=== PATIENT | male | born 2005 | race Caucasian/White ===

== ENCOUNTER 2023-10-08 22:13 | Emergency (ER) | payer BC, SELFPAY ==
[2023-10-08 22:14] VITALS: BP 130/62; PULSE 78; RESP 17; TEMP 36.4; O2SAT 97; BMI 39.6
--- NOTE | 2023-10-08 22:25 | CT_ITS ---
EXAMINATION : Head CT w/out contrast HISTORY : injury COMPARISON : None. TECHNIQUE : Multiple contiguous axial images were obtained from the skull base to the vertex without intravenous contrast. A radiation dose optimization technique was used for this scan. FINDINGS : The ventricles and sulci are normal in size. There is no evidence for acute intracranial hemorrhage, mass effect, or midline shift. There is no extra-axial fluid collection. There is normal jacobs-white differentiation, without CT evidence of acute ischemia or infarct. The skull base and calvarium are unremarkable. The orbits are unremarkable. The paranasal sinuses are clear. The mastoid air cells are well-aerated. Large left parietal scalp hematoma. CT/Brain/Head without Contrast IMPRESSION: Large left parietal scalp hematoma without fracture or intracranial hemorrhage.. Electronically Signed: Rocael Cardenas MD at 0:07 EDT ,
--- NOTE | 2023-10-08 22:25 | CT_ITS ---
INDICATION: injury EXAMINATION: CT CERVICAL SPINE - CT Spine Cervical W/O Contrast Injection TECHNIQUE: Helically acquired images were obtained of the cervical spine. 2D reformatted images were reviewed. A radiation dose optimization technique was used for this scan. IV Contrast dosage and agent: None. COMPARISON: None. FINDINGS: VERTEBRAE: Questionable acute nondisplaced fractures of the bilateral T1 transverse processes. No discrete lytic or blastic abnormality. Normal alignment. Normal craniocervical junction and cervicothoracic junction. DISCS and SPINAL CANAL: Disc heights are preserved. No critical stenosis. NECK SOFT TISSUES: No prevertebral soft tissue swelling. There is bilateral cervical lymphadenopathy. LUNG APICES: Clear. CT/Spine Cervical without Contras IMPRESSION: Questionable acute nondisplaced fractures versus prominent vascular channels of the bilateral T1 transverse processes. Recommend chest or T-spine CT for further evaluation. Bilateral cervical lymphadenopathy. Recommend neck CT with contrast. Electronically Signed: Rocael Cardenas MD at 0:18 EDT ,
--- NOTE | 2023-10-08 22:26 | EX.ED.GENINJ ---
HPI History of Present Illness Chief Complaint: Laceration Informant: patient Onset/Context/Timing Onset: Today Narrative Narrative: Patient presents after tripping and falling while running tonight hitting his head on concrete. He has a 4 cm laceration of the left parietal scalp with a hematoma. There is no loss of consciousness. He has slight neck stiffness. He is unsure of his last tetanus update. PFSH PFS Medical History no medical history no medical history Home Medications NK 10/08/23 [History Last Taken Unknown] Allergy/AdvReac Type Severity Reaction Status Date / Time No Known Allergies Allergy Verified 10/08/23 22:16 ROS ROS ED Constitutional Constitutional ED: Denies chills or fever(s) Eyes Eyes: Denies change in vision or discharge from eye(s) ENT ENT ED: Denies discharge from eye(s), rhinorrhea or sore throat Cardiovascular Cardiovascular: Denies chest pain Respiratory/Chest Respiratory/Chest: Denies cough or dyspnea Gastrointestinal Gastrointestinal: Denies abdominal pain, nausea or vomiting Musculoskeletal Musculoskeletal: Reports neck pain; Denies back pain or extremity pain Integumentary Reports other Details: Scalp laceration ; Denies Abrasions or rash Neurologic Neurologic: Reports headache(s); Denies weakness Psychiatric Psychiatric: Denies anxiety or depression Allergic/Immunologic Allergic/Immunologic ED: Denies lip swelling or urticaria EXAM Physical Exam Const Vital Signs: 10/08/23 22:14 Temperature 97.6 F L Temperature Source Temporal Pulse Rate 78 Respiratory Rate 17 Blood Pressure 130/62 H Blood Pressure Mean 84 Pulse Ox 97 Oxygen Delivery Method Room Air Positive well nourished and well developed General Appearance ED: well developed HEENT HEENT Narrative: 4 cm laceration with underlying hematoma to the left parietal scalp. Bleeding well-controlled. Eyes EOMs intact bilaterally Neck Neck Narrative: No focal C-spine tenderness. Chest Wall inspection of chest normal and palpation of chest normal Resp normal respiratory effort and clear to auscultation bilaterally Cardio regular rhythm Rate: regular rate GI non-tender Palpation: soft Extremity normal to inspection Neuro oriented x3, moves all extremities, no focal motor deficits and no sensory deficits noted Skin Skin Narrative: Scalp laceration as noted above. MDM MDM MDM Narrative Medical decision making narrative: Tetanus update provided. Patient sent for CT imaging of the brain and C-spine to evaluate for bleed, fracture, contusion. Laceration is anesthetized with 1% lidocaine with epinephrine, 8 cc total used. Wound is cleansed and irrigated. 7 mera placed across the wound. Patient tolerated procedure well. CT scan of the head reveals parietal scalp hematoma without fracture. CT of the C-spine reveals questionable acute nondisplaced fractures versus prominent vascular channels of the bilateral T1 transverse processes. This area is reexamined. Patient has no tenderness to this area. He does not wish to stay for further imaging of this area. I did advise him if it starts to bother him he can return and we can repeat imaging at that time. He is reassured that this is not near the spinal cord and would not cause any neurosymptoms even if there were nondisplaced fractures. Patient is to have his mera removed in 5 to 7 days. Return instructions given. Radiography Diagnostic Testing: Clinical Impression(s) from Imaging Studies Brain CT 10/08/23 22:25 IMPRESSION: Large left parietal scalp hematoma without fracture or intracranial hemorrhage.. Electronically Signed: Rocael Cardenas MD at 0:07 EDT , Cervical Spine CT 10/08/23 22:25 IMPRESSION: Questionable acute nondisplaced fractures versus prominent vascular channels of the bilateral T1 transverse processes. Recommend chest or T-spine CT for further evaluation. Bilateral cervical lymphadenopathy. Recommend neck CT with contrast. Electronically Signed: Rocael Cardenas MD at 0:18 EDT , Discharge Plan Triage Chief Complaint: Laceration ED Provider: Melissa Marshall Dx/Rx/DC Orders Clinical Impression: Closed head injury, Fall, Laceration of scalp Instructions: ED Head Injury (Adult), ED Laceration Scalp Stitches or Mera Prescriptions: No Action NK Primary Care Provider: Care Physician,No Primary Referrals: Town Doctor,Out of [Non-Staff] - Activity Restrictions/Additional Instructions: Please have your mera removed in 5 to 7 days. As discussed, the CT scan of your neck suggested possible nondisplaced fractures of the bilateral T1 transverse processes. This may just be prominent vascular channels that are being visualized. He did not have any tenderness to this area. Please follow-up closely if you develop pain to this area. This does not involve the spinal cord area.
[2023-10-08] MEDS: Diphth,Pertuss(Acell),Tet Vac 0.5 ML Vial IM (23:13)
[2023-10-08] MEDS: Lidocaine 1% /Epi 1:100 (20ml) 20 ML Vial INFILT (23:22)
[2023-10-08] MEDS: Acetaminophen 500 MG Tablet 1000 MG PO (23:36)
== END 2023-10-09 00:37 | disposition home or self-care (01) ==
PROVIDERS: Emergency Provider Emergency Medicine; Visit Provider Emergency Medicine
DX: S01.01XA Laceration without foreign body of scalp, initial encounter (principal); W19.XXXA Unspecified fall, initial encounter
CPT/HCPCS: 12002; 70450; 72125; 90715; 99283